=== PATIENT | female | born 1965 | race Two or more races ===

== ENCOUNTER → 2024-10-15 | Outpatient (CLI) | payer MEDICAID, SELFPAY ==
--- NOTE | 2024-10-15 11:00 | XR_ITS ---
Examination: Breast ultrasound, unilateral, right complete Date and time of exam: October 15, 2024 1116 hours INDICATIONS: Right breast sonogram March 16, 2021 2:00 nodule 9 mm 8:00 nodule 4 mm Technique: Real-time luna scale ultrasonographic imaging performed right breast including all 4 quadrants as well as nipple retroareolar and axillary region. Findings: 2:00 circumscribed nodule 7 x 8 mm 8:00 circumscribed nodule 3 x 3 mm IMPRESSION: BI-RADS Category 2: Benign findings
--- NOTE | 2024-10-15 11:30 | XR_ITS ---
Examination: Diagnostic digital mammography, bilateral Computer aided detection 3-D breast Tomosynthesis, bilateral Date and time of exam: October 15, 2024 1128 hours INDICATIONS: Right breast sonography March 16, 2021 2:00 8:00 breast nodules Technique: Nonmagnified MLO, CC views of the breasts to been obtained, reconstructed from 3-D Tomosynthesis images. R2 computer aided detection program utilized for evaluation of suspicious masses and/or abnormal calcifications. 3-D Tomosynthesis images obtained. Findings: The breasts are heterogeneously dense, which may obscure small masses 8 mm focal asymmetry nipple level left breast CC view posterior depth 5.9 cm from the nipple Impression: BI-RADS Category 0: Incomplete: Need additional imaging evaluation 8 mm focal asymmetry nipple level left breast CC view, recommend follow-up spot tomographic CC view, spot tomographic MLO view upper left breast posterior depth, left breast sonography to complete the workup.
== END | disposition home or self-care (01) ==
LOC: CDIM 10:58
PROVIDERS: Referring Provider Physician Assistant; Visit Provider Physician Assistant
DX: N63.0 Unspecified lump in unspecified breast (principal); N63.12 Unspecified lump in the right breast, upper inner quadrant; N63.13 Unspecified lump in the right breast, lower outer quadrant; R92.333 Mammographic heterogeneous density, bilateral breasts; N64.89 Other specified disorders of breast
CPT/HCPCS: 76641; 77062; 77066; G0279

== ENCOUNTER → 2025-05-04 | Outpatient (CLI) | payer MEDICAID, SELFPAY ==
--- NOTE | 2025-05-04 10:30 | XR_ITS ---
Examination: Breast ultrasound, unilateral, left complete Date and time of exam: May 04, 2025, 1141 hours INDICATIONS: Mammogram October 15, 2024 8 mm focal asymmetry nipple level left breast CC view Technique: Real-time luna scale ultrasonographic imaging performed left breast including all 4 quadrants as well as nipple retroareolar and axillary region. Findings: No cystic or solid mass IMPRESSION: BI-RADS Category 1: Negative study
--- NOTE | 2025-05-04 11:30 | XR_ITS ---
Examination: Diagnostic digital mammography, unilateral, left Computer aided detection 3-D breast Tomosynthesis, unilateral Date and time of exam: 05/04/2025, 11:58 a.m. Comparisons: March 2021 through October 2024 Indications: Further evaluation of focal asymmetry seen on prior screening exam. Technique: Nonmagnified MLO, CC views of the breast have been obtained, reconstructed from 3-D Tomosynthesis images. R2 computer aided detection program utilized for evaluation of suspicious masses and/or abnormal calcifications. 3-D Tomosynthesis images obtained. Technologist: Findings: The breasts are heterogeneously dense, which may obscure small masses. No evidence of abnormal masses or suspicious calcifications. The previously described abnormality does not persist on spot compression views and represents superimposition of normal fibroglandular tissue. Impression: BI-RADS category 1: Negative findings (within normal) Recommend 1 year follow-up mammogram
== END | disposition home or self-care (01) ==
PROVIDERS: PCP Family Medicine; Referring Provider Family Medicine; Visit Provider Family Medicine
DX: R92.312 Mammographic fatty tissue density, left breast (principal)
CPT/HCPCS: 76641; 77061; 77065; G0279